=== PATIENT | male | born 1995 | race Caucasian/White ===

== ENCOUNTER 2017-03-28 18:17 | Emergency (ER) | payer OTHER ==
[~2017-03-28] VITALS: Ht 180.3 cm; Wt 72.5 kg
[2017-03-28 18:47] VITALS: TEMP 37.3; Ht 180.3 cm; Wt 72.5 kg
--- NOTE | 2017-03-28 19:03 | EMERGENCY ROOM VISIT NOTE ---
ED Visit Note First contact with patient: 18:51 CHIEF COMPLAINT: Possible exposure to mumps HISTORY of present illness: This 21-year-old male presents the ER with stated complaint of possible exposure to mumps. The patient states he has 3 roommates. One his roommate girlfriend was at their apartment 2 weeks ago. The girlfriend has been exposed to 2 friends of hers which have the mumps. She does not have any symptoms. The girlfriend's friends were not at the apartment. The patient states that he was not even at the apartment 2 weeks ago when the girlfriend was there. The patient has had the mumps immunizations. The patient currently denies any symptoms. He states he is here because his roommate's told him he needed to come. REVIEW OF SYSTEMS: 6 system review was performed and was negative unless stated otherwise in history of present illness. PMH: The patient is healthy; there is no significant medical or surgical history. SOCIAL HISTORY: Patient is a [employer] student. The patient denies any tobacco or alcohol use. PHYSICAL EXAM: Vital Signs: Were reviewed Reviewed Nurse's notes. GENERAL: 21- year-old male appears in no acute distress. MENTAL Status: Alert and oriented 3. EARS: TMs - no perforation, injection, or bulging. External canals clear, tympanic membranes not inflamed. FACE: No facial swelling, erythema or edema noted. Pharynx - no injection, exudate or tonsillar hypertrophy. Airway patent. LUNGS: Clear to auscultation and breath sounds equal, no wheezes, rales , or rhonchi. HEART: Regular rate and rhythm, without murmurs, ectopy, gallops, or rubs. EMERGENCY COURSE: I discussed with the patient that he was not technically exposed to mumps. I reviewed the symptoms of mumps with the patient and told him if he has any symptoms he should seek medical attention especially with [facility] services so they are aware. DIAGNOSIS: Healthy 21-year-old male DISCHARGE INSTRUCTIONS: No treatment necessary at this time. Patient condition was stable. Please see Emergency Department Medical Record for additional patient information; this may include discharge diagnosis, interpretation of EKG, laboratory, and/or radiologic studies, Emergency Department course, etc. Vital Signs Date Time Temp Pulse Resp B/P (MAP) Pulse Ox O2 Delivery O2 Flow Rate FiO2 1/22/18 18:47 37.3 91 18 147/78 99 Room Air Departure Information Referrals No Doctor, Assigned (PCP) Patient Instructions [facility]
[2017-03-28 19:08] VITALS: BP 147/78; PULSE 91; O2SAT 99
== END 2017-03-28 19:09 | disposition home or self-care (01) ==
LOC: C.EDB 18:18 → C.EDD 19:09
DX: Z20.89 Contact with and (suspected) exposure to other communicable diseases (principal)